=== PATIENT | female | born 2000 | race African-American/Black ===

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

== ENCOUNTER 2023-09-11 23:24 | Emergency (ER) | payer MEDICAID ==
[~2023-09-11] VITALS: Ht 157.5 cm; Wt 64.0 kg
[2023-09-11 23:50] VITALS: BP 117/76; PULSE 68; RESP 16; TEMP 98.3; O2SAT 100
== END 2023-09-12 00:47 | disposition left against medical advice (07) ==
LOC: ER 23:37
DX: R07.9 Chest pain, unspecified (principal); Z53.21 Procedure and treatment not carried out due to patient leaving prior to being seen by health care provider